=== PATIENT | female | born 1985 | race Hispanic/Latino ===

== ENCOUNTER 2021-07-03 23:55 | Observation (INO) | payer OTHER ==
[~2021-07-03] VITALS: Ht 149.9 cm; Wt 73.5 kg
[2021-07-04] MEDS ORDERED: LORAZEPAM INJ 2 MG/ML VIAL IV STA (00:05)
[2021-07-04] MEDS ORDERED: LORAZEPAM INJ 2 MG/ML VIAL ONE (00:22)
[2021-07-04] MEDS ORDERED: DEXTROSE 50% SYRINGE 50 ML IV PRN (00:45)
[2021-07-04] MEDS ORDERED: SODIUM CHLORIDE 0.9% 250ML 250 ML IV ONE (00:45)
[2021-07-04] MEDS ORDERED: SODIUM CHLORIDE 0.9% 1000ML 1,000 ML IV STA (00:51)
[2021-07-04] MEDS ORDERED: SODIUM CHLORIDE 0.9% 1000ML 1,000 ML ONE (01:04)
[2021-07-04] MEDS ORDERED: POTASSIUM CHLORIDE 10MEQ EA PO STA (01:21)
[2021-07-04] MEDS ORDERED: BENADRYL25 M1 PO (02:40)
[2021-07-04 03:00] VITALS: BP 104/63
[2021-07-04] MEDS: DIPHENHYDRAMINE HCL INJ 50 MG/ML VIAL IV PRN ×2 (03:25→08:55)
[2021-07-04] MEDS: LORAZEPAM INJ 2 MG/ML VIAL IV PRN ×2 (04:15→09:00)
[2021-07-04] MEDS ORDERED: SODIUM CHLORIDE 0.9% 250ML 250 ML ONE ×2 (04:41→08:35)
[2021-07-04 05:06] VITALS: BP 105/69
[2021-07-04] MEDS: INSULIN REGULAR, HUMAN 100 UNIT/1 ML SQ SCH ×3 (07:30→16:30)
[2021-07-04 08:00] VITALS: BP 89/72
[2021-07-04] MEDS ORDERED: POTASSIUM CHLORIDE 10MEQ EA PO SCH (09:00)
[2021-07-04 10:27] VITALS: BP 89/72
[2021-07-04] MEDS: ALPRAZOLAM 0.5 MG TAB PO PRN ×2 (13:03→20:04)
[2021-07-04 13:25] VITALS: BP 100/43
[2021-07-04] MEDS ORDERED: FLUOXETINE HCL 10 MG CAP PO SCH (13:30)
[2021-07-04 17:10] LABS: HEMATOCRIT 26.1 % (34.2-44.1); HEMOGLOBIN 7.9 g/dL (12.0-16.0)
[2021-07-04 17:33] VITALS: BP 99/63
== END 2021-07-04 20:12 | disposition home or self-care (01) ==
LOC: FSED 07-04 00:05 → ERHOLD 07-04 00:29 → MED/SURG2 07-04 02:09
DX: D62 Acute posthemorrhagic anemia (principal); F41.9 Anxiety disorder, unspecified; F32.A Depression, unspecified; Z20.822 Contact with and (suspected) exposure to COVID-19; N92.0 Excessive and frequent menstruation with regular cycle; R00.2 Palpitations
CPT/HCPCS: 36415; 71045; 80053; 80307; 81003; 81025; 82948; 83036; 84484; 85014; 85018; 85025; 86850; 86900; 86920; 93005; 99284; G0378; J1200; J2060; J7030; J7050; P9016; U0002

== ENCOUNTER 2024-05-22 20:04 | Observation (INO) | payer OTHER ==
[~2024-05-22] VITALS: Ht 149.9 cm; Wt 73.5 kg
[~2024-05-22 20:04] MED LIST: BENADRYL25 M1 PO
[2024-05-22 21:07] LABS: BASOPHILS % 0.3 % (0.0-1.0); EOSINOPHILS # (AUTO) 0.1 (0.0-0.4); EOSINOPHILS % 0.6 % (0.0-6.0); LYMPHOCYTES # (AUTO) 1.9 (1.0-3.2); LYMPHOCYTES % 13.5 % (18.0-39.1); MEAN CORPUSCULAR HEMOGLOBIN 23.1 pg (28-32); MEAN CORPUSCULAR HGB CONC 29.7 g/dL (31-35); MEAN CORPUSCULAR VOLUME 77.7 fL (81-99); MONOCYTES # (AUTO) 0.6 (0.2-0.8); MONOCYTES % 4.4 % (4.4-11.3); NEUTROPHILS # (AUTO) 11.4 (2.1-6.9); NEUTROPHILS % 80.8 % (38.7-80.0); PLATELET COUNT 535 x10e3/uL (140-360); RED BLOOD COUNT 2.47 x10e6/uL (3.6-5.1); RED CELL DISTRIBUTION WIDTH 15.8 % (11.7-14.4); WHITE BLOOD COUNT 14.11 x10e3/uL (4.8-10.8)
[2024-05-22 21:11] LABS: HEMATOCRIT 19.2 % (34.2-44.1); HEMOGLOBIN 5.7 g/dL (12.0-16.0)
[2024-05-22 21:23] LABS: ALBUMIN 3.7 g/dL (3.5-5.0); ALBUMIN/GLOBULIN RATIO 1.3 (0.8-2.0); ANION GAP 13.6 mmol/L (8-16); BILIRUBIN,TOTAL 0.3 mg/dL (0.2-1.2); CALCIUM 9.3 mg/dL (8.4-10.2); CREATININE, SERUM 0.66 mg/dL (0.57-1.11); POTASSIUM 3.6 mmol/L (3.5-5.1); TOTAL PROTEIN 6.5 g/dL (6.5-8.1)
[2024-05-22] MEDS ORDERED: SODIUM CHLORIDE FLUSH 10 ML SYR INJ PRN (21:30)
[2024-05-22] MEDS ORDERED: ONDANSETRON HCL INJ 2MG/ML 2ML 2 MG/ML VIAL IV PRN (21:30)
[2024-05-22 21:42] LABS: FERRITIN 6.6 ng/mL (4.63-204.00)
[2024-05-22 22:14] VITALS: BP 119/67; PULSE 83; RESP 18; TEMP 98.4; O2SAT 100
[2024-05-22 22:26] VITALS: PULSE 104; RESP 18; TEMP 98.9
[2024-05-22] MEDS ORDERED: FERROUS SULFAT325 MG PO (23:05)
[2024-05-22] MEDS ORDERED: PROVERA5 MG PO (23:05)
[2024-05-22 23:12] VITALS: BP 104/59; PULSE 104; RESP 18; TEMP 98.8; O2SAT 98
[2024-05-22 23:49] VITALS: BP 125/69; PULSE 103; RESP 20; TEMP 98.2; O2SAT 100
[2024-05-23] VITALS (17 sets, daily range): BP systolic 91–131; BP diastolic 52–86; PULSE 71–123; RESP 15–24; TEMP 97.6–100.9; O2SAT 97–100
[2024-05-23] MEDS: SODIUM CHLORIDE 0.9% 250ML 250 ML IV ONE
[2024-05-23] MEDS ORDERED: ACETAMINOPHEN 325 MG TAB PO PRN ×2 (00:15→00:45)
[2024-05-23] MEDS: SODIUM CHLORIDE 0.9% 250ML 250 ML ONE ×2 (00:57→03:55)
[2024-05-23] MEDS: ACETAMINOPHEN 325 MG TAB PO PRN (01:01)
[2024-05-23] MEDS ORDERED: MELATONIN3 MG PO (01:35)
[2024-05-23] MEDS: MELATONIN 3 MG TAB PO SCH (01:51)
[2024-05-23] MEDS: LORAZEPAM INJ 2 MG/ML VIAL IV ONE (04:10)
[2024-05-23] MEDS: ACETAMINOPHEN 1000 MG/100 ML IV STA (06:54)
[2024-05-23 07:07] LABS: BASOPHILS % 0.3 % (0.0-1.0); EOSINOPHILS % 0.2 % (0.0-6.0); HEMATOCRIT 26.2 % (34.2-44.1); LYMPHOCYTES # (AUTO) 0.4 (1.0-3.2); MEAN CORPUSCULAR HEMOGLOBIN 24.9 pg (28-32); MEAN CORPUSCULAR HGB CONC 30.5 g/dL (31-35); MEAN CORPUSCULAR VOLUME 81.6 fL (81-99); MONOCYTES # (AUTO) 0.2 (0.2-0.8); MONOCYTES % 1.7 % (4.4-11.3); NEUTROPHILS # (AUTO) 13.6 (2.1-6.9); NEUTROPHILS % 94.2 % (38.7-80.0); PLATELET COUNT 351 x10e3/uL (140-360); RED BLOOD COUNT 3.21 x10e6/uL (3.6-5.1); RED CELL DISTRIBUTION WIDTH 16.2 % (11.7-14.4); WHITE BLOOD COUNT 14.42 x10e3/uL (4.8-10.8)
[2024-05-23 07:44] LABS: ALBUMIN 3.5 g/dL (3.5-5.0); ALBUMIN/GLOBULIN RATIO 1.3 (0.8-2.0); ANION GAP 13.6 mmol/L (8-16); BILIRUBIN,TOTAL 2.5 mg/dL (0.2-1.2); CALCIUM 8.6 mg/dL (8.4-10.2); CREATININE, SERUM 0.6 mg/dL (0.57-1.11); POTASSIUM 3.6 mmol/L (3.5-5.1); TOTAL PROTEIN 6.2 g/dL (6.5-8.1)
[2024-05-23 07:45] LABS: % IRON SATURATION 94 % (15-50); IRON 299 ug/dL (50-170); TOTAL IRON BINDING CAPACITY 319 ug/dL (261-478); TRANSFERRIN 228 mg/dL (180-382)
[2024-05-23] MEDS: DIPHENHYDRAMINE HCL 25 MG CAP PO ONE (09:55)
[2024-05-23] MEDS: ACETAMINOPHEN 325 MG TAB PO ONE (09:56)
[2024-05-23] MEDS: METHYLPREDNISOLONE SOD SUCC 40 MG/ML VIAL 1ML IV ONE (09:56)
[2024-05-23] MEDS: IRON SUCROSE 100 MG in SODIUM CHLORIDE 0.9% 100 ML IV SCH ×2 (09:56→11:41)
[2024-05-23] MEDS: DIPHENHYDRAMINE HCL 25 MG CAP ONE (10:20)
== END 2024-05-23 13:15 | disposition home or self-care (01) ==
LOC: ER 20:27 → ERHOLD 21:19 → MED/SURG 22:23
PROVIDERS: ADMIT Internal Medicine; ATTEND Internal Medicine
DX: D50.0 Iron deficiency anemia secondary to blood loss (chronic) (principal); N93.9 Abnormal uterine and vaginal bleeding, unspecified; F41.9 Anxiety disorder, unspecified
CPT/HCPCS: 36415 ×2; 36430; 80053 ×2; 82728; 83540 ×2; 84466 ×2; 84702; 85025 ×2; 86850; 86900; 86920; 93005; 94799; 99283; G0378 ×2; J0131; J1756; J2060; J2919; J7050 ×3; P9016